=== PATIENT | male | born 1960 | race Caucasian/White ===

== ENCOUNTER 2023-07-21 13:24 | Outpatient (RCR) | payer MEDICARE, SELFPAY ==
[2023-07-13 08:14] LABS: Estimated Glomerular Filt Rate 26
--- NOTE | ~2023-07-21 | CT_ITS ---
CT of the Abdomen and Pelvis: Indication: Microscopic hematuria Technique: 2.5 mm axial scans were obtained through the abdomen and pelvis prior to and following in travenous administration of 130 cc of Omnipaque 350. Dose reduction technique was used on this scan b y utilizing automated exposure control and iterative reconstruction technique. The dose-length produc t (DLP) was 1847.90 mGy-cm. Findings: Scans through the lung bases are unremarkable. There is a 7.5 mm ovoid stone at the mid right ureter (series 3 image 29), with mild to moderate hydr oureteronephrosis to this level. There is a punctate nonobstructing left renal stone. The liver, spleen, pancreas, and adrenal glands are within normal limits. Cholecystectomy clips are p resent. No evidence of aortic aneurysm. No lymphadenopathy. No bowel obstruction or bowel wall thickening. There is no evidence to suggest acute appendicitis. Images through the pelvis were performed. Urinary bladder unremarkable. No pelvic mass seen. No ascit es. Bilateral L5 pars interarticularis defects are present. Impression: 7.5 mm mid right ureteral stone with mild to moderate right hydroureteronephrosis. Punctate nonobstructing left renal stone. Reviewed, dictated and finalized at location . Impression: 7.5 mm mid right ureteral stone with mild to moderate right hydroureteronephros is. Punctate nonobstructing left renal stone.
--- NOTE | ~2023-07-21 | XR_ITS ---
Supine and upright views of the abdomen Clinical history: Microscopic hematuria COMPARISON: 09/14/2016 Findings: Bowel gas pattern is nonspecific. No evidence for obstruction or free air. No abnormal mass lesion or calcification is seen. There is dextroscoliosis of the lumbar spine. Cholecystectomy clips are present. Impression: No significant abnormality is seen. Reviewed, dictated and finalized at location . Impression: No significant abnormality is seen.
[2023-07-21 07:24] LABS: Estimated Glomerular Filt Rate 41
== END 2023-07-21 13:30 | disposition home or self-care (01) ==
LOC: ANHIMG 13:24
PROVIDERS: PCP Family Medicine; Visit Provider Urology
DX: R31.29 Other microscopic hematuria (principal); N20.0 Calculus of kidney
CPT/HCPCS: 74018; 74178; Q9967

== ENCOUNTER 2023-07-22 07:51 | Outpatient (CLI) | payer MEDICARE, SELFPAY ==
--- NOTE | ~2023-07-22 | XR_ITS ---
XR abdomen/kub 1V 07/22/2023 08:10 INDICATION: Microscopic hematuria TECHNIQUE: KUB COMPARISON: Comparison to multiple prior studies sequentially, with oldest reviewed study dated 05/12. FINDINGS: Bowel gas pattern is normal. There is no evidence of free air, mass, organomegaly, ascites or obstruction. No abnormal calculi are seen. The bones appear intact. There are cholecystectomy c lips. IMPRESSION: 1: No acute abdominal abnormality identified. Reviewed, dictated and finalized at location B.
== END 2023-07-22 07:52 | disposition home or self-care (01) ==
PROVIDERS: PCP Family Medicine; Visit Provider Urology
DX: R31.29 Other microscopic hematuria (principal)
CPT/HCPCS: 74018

== ENCOUNTER 2023-07-23 08:06 | Outpatient (CLI) | payer MEDICARE, SELFPAY ==
--- NOTE | 2023-07-23 08:08 | ECG_ITS ---
SEE SCANNED COPY FOR CONFIRMED REPORT MTDD
== END 2023-07-23 08:07 | disposition home or self-care (01) ==
PROVIDERS: PCP Family Medicine; Visit Provider Urology
DX: N20.0 Calculus of kidney (principal); F17.210 Nicotine dependence, cigarettes, uncomplicated; Z01.818 Encounter for other preprocedural examination
CPT/HCPCS: 87086; 93005

== ENCOUNTER 2023-07-26 00:38 | Day surgery (SDC) | payer MEDICARE, SELFPAY ==
[2023-07-22 15:08] VITALS: BMI 27.8
--- NOTE | 2023-07-22 15:19 | PC.NURSE ---
PRE-OP INSTRUCTIONS, PLEASE READ CAREFULLY Report to the Outpatient Waiting Room, entrance under the green pavilion located off [facility], at time _0815_ on date _07/26/23_. Planned Procedure Time: _1015_. Time changes happen often and if your time is changed the preop area will call you the afternoon before. - You and your visitor will be asked to self-screen and do not enter if you have any COVID symptoms. - A mask is optional within the hospital at this time. Patients may have clear liquids (water, carbonated beverages, clear teas, apple juice) until 3 hours prior to surgery (0715 AM) with a maximum of 20 ounces. - No food from midnight until time of surgery Take the following medications with a SIP of water the morning of surgery: _NASAL SPRAY IF NEEDED_ DO NOT STOP ANY OF YOUR OTHER PRESCRIPTION MEDICATIONS PRIOR TO SURGERY ?EXCEPT THE FOLLOWING Medications to discontinue _PT STATES ALREADY STOPPING ALEVE SEVERAL DAYS AGO_ Medications to discontinue per ANESTHESIA -_VITAMINS/SUPPLEMENTS OF TODAY Date to take last dose 07/22/23_ Please no make-up, nail sinhala, hairspray, perfume, deodorant, or body powder the day of surgery. No jewelry (including any body piercings) or valuables the day of surgery, leave them at home. Please take a shower or bath the night before, or the morning of, surgery with an antibacterial soap. Wear comfortable, loose fitting clothing. - Jewelry must be removed prior to entering the operating room. Rings and piercings that are not removed may be cut off. - The hospital will not accept responsibility for valuables. - Please leave all valuables, including medications, at home the day of surgery. If you are going home after surgery, a licensed warehouse associate driver must drive you home. - NO public transportation without another adult if you receive anesthesia. - We recommend that an adult stay with you for 24 hours following discharge. - We also recommend that you do not drive, make important decision, drink alcoholic beverages, or take any drugs that were not prescribed by your health care provider for at least 24 hours after your discharge time. Follow any additional instructions given to you from your surgeon. If you or anyone in your household have experienced Covid symptoms in the past week, please notify your surgeon or the nurse liaison at the phone number below for possible testing. Telephone instructions given to _PATIENT_and asked if any additional questions and then verbalized understanding. Patient advised to call surgeon office or pre surgery nurse liaison [phone] if any additional questions.
--- NOTE | ~2023-07-26 | XR_ITS ---
EXAMINATION: XR retrograde pyelo w/stent RT DATE: 07/26/2023 11:14 INDICATION: Right ureteral stone. TECHNIQUE: 5 intraoperative fluoroscopic views of the abdomen and pelvis were obtained. I was not pre sent. Fluoroscopy exposure time was 21 seconds. COMPARISON: CT abdomen and pelvis 07/21/2023 FINDINGS: The right-sided retrograde pyelogram demonstrates mild hydronephrosis. The final images dem onstrate a right internal ureteral stent in expected position. Surgical clips in the right upper quad rant are likely from cholecystectomy. IMPRESSION: 1. Mild right hydronephrosis. 2. Right internal ureteral stent in expected position. Reviewed, dictated and finalized at location A.
[2023-07-26 08:51] VITALS: BP 132/85; PULSE 69; RESP 14; TEMP 36.5; O2SAT 98
[2023-07-26] MEDS: LACTATED RINGERS 1,000 ML 30 ML IV CONT (08:54)
--- NOTE | 2023-07-26 10:03 | WPDHPUPDATE1 ---
History and Physical Update Update Date/Time: 07/26/23 10:03 History and Physical has been reviewed, including an updated exam of the patient. There are NO changes in the patient's condition. Risks, benefits, and alternatives have been discussed and questions answered. Patient agrees to proceed with procedure. Proceed with cystoscopy, right retrograde pyelogram, right ureteroscopy with laser, stone extraction, stent placement
--- NOTE | 2023-07-26 10:07 | P.PNAN_ITS ---
Anes - Initial Pre Proc Eval Procedure: Operation Date: 07/26/23 10:15 Proposed Procedures p Cystoscopy, Right Ureteroscopy with Laser Lithotripsy, Possible Right Retrograde Pyelogram, Possible Right Stone Extraction, Possible Right Stent Placement - Jay Rico MD Date/Time: 07/26/23 10:07 Surgeon: Jay Rico MD Pre Op Diagnosis: right ureteral kidney stone Patient Data Age: 63 Gender: M Height: 1.98 m Weight: 103.1 kg Last Vital Signs Temp 97.7 F 07/26/23 08:51 Pulse 69 07/26/23 08:51 Resp 14 07/26/23 08:51 BP 132/85 07/26/23 08:51 Pulse Ox 98 07/26/23 08:51 Allergies Allergy/AdvReac Type Severity Reaction Status Date / Time No Known Allergies Allergy Mild Verified 07/26/23 08:54 Home Medications Medication Instructions Recorded Confirmed Type cyanocobalamin (vitamin B-12) 1,000 mcg PO DAILY 07/22/23 07/22/23 History 1,000 mcg tablet famotidine 20 mg tablet (Pepcid) 20 mg PO DAILY 07/22/23 07/22/23 History fluticasone propionate 50 2 spray intranasal DAILY 07/22/23 07/22/23 History mcg/actuation nasal spray,suspension naproxen sodium 220 mg capsule 220 mg PO BID PRN Pain 07/22/23 07/22/23 History (Aleve) terbinafine HCl 250 mg tablet 250 mg DAILY 07/22/23 07/22/23 History Patient hx anesthesia problems: none Family hx anesthesia problems: none Results Review: All pre-operative results and documents have been reviewed as part of the pre- operative evaluation. [facility] Social History Social History Smoking packs per day: 1 Smoking cigarettes per day: 20.0 Years smoked: 20 Smoking pack-years: 20.00 Smoking status: Former smoker Tobacco type: cigarettes Second hand tobacco smoke exposure: No Smoking end date: 03/21/08 Alcohol intake: current Alcohol use details: VERY RARELY - MAYBE COUPLE DRINKS AT [place] Substance use: never Substance use type: does not use Living arrangements: with family Spiritual care concerns: No Anes - Eval Final PreProcedure Day of Procedure 07/26/23 10:07 Patient weight: normal Heart: regular rate and rhythm Lungs: clear to auscultation Airway: Mallampati scale class II Neurological: alert and oriented Last oral intake: >/= 8 hours ASA classification: II Emergent: no Anesthetic plan: proceed Anesthesia type and monitoring: general LMA and standard monitoring Results Review: All pre-operative results and documents have been reviewed as part of the pre- operative evaluation. Informed Consent: The patient's anesthetic plan and its attendant risks and benefits were discussed with the patient/family/POA. Questions were solicited and answers provided to the satisfaction of the patient/family/POA.
[2023-07-26] MEDS: ceFAZolin 2 GM/D5W 50 ML 2 GM/50 ML BAG IVPB (10:21)
[2023-07-26] MEDS: LIDOCAINE HCL 2% GEL UROJET 10 ML PKG MUCOUS MEM (10:55)
--- NOTE | 2023-07-26 11:11 | W.PM.PROC2 ---
Procedure Note - Detailed Date of Procedure 07/26/23 Pre-op Diagnosis right ureteral kidney stone Post-op Diagnosis Same Procedure Performed Cystoscopy, right retrograde pyelogram, right ureteroscopy with holmium laser, stone extraction, right ureteral stent placement 4.8 Irish contour Surgeon Jay Rico MD Anesthesia General Description of Procedure Patient was taken to the operative suite correctly identified. Once anesthesia was obtained he was placed in the dorsal lithotomy position and prepped and draped usual sterile fashion. Twenty-two Irish scope was inserted the bladder there are no tumors noted. The right ureteral orifice was cannulated with a guidewire. Ureteral access sheath was placed. Mini flexible ureteral scope was inserted the stone was visualized. It was too large to retrieve 1 piece. Using a 200 micron fiber the stone was lasered in multiple small pieces. The large pieces were retrieved sent for analysis. Reinspection revealed no residual stones. Pyelogram was then performed to confirm placement of the stent. 4.8 Irish contour stent was then placed with the proximal end coiled in the renal pelvis and the distal in the bladder. 2% viscous lidocaine was then inserted urethra patient is taken recovery stable condition. He will follow-up in a week's time for stent removal. This completes dictation. Please send a copy of op note to my office. Estimated Blood Loss 0 Drains Yes Packing No Pathology Yes Complications No immediate complications Condition Stable Disposition PACU
[2023-07-26 11:16] VITALS: BP 124/75; PULSE 63; RESP 18; TEMP 36.4; O2SAT 100
[2023-07-26 11:30] VITALS: BP 133/89; PULSE 67; RESP 14; O2SAT 100
[2023-07-26 11:46] VITALS: BP 132/85; PULSE 72; RESP 14; O2SAT 100
[2023-07-26 11:50] VITALS: BP 131/77; PULSE 58; RESP 16
[2023-07-26 12:20] VITALS: BP 142/87; PULSE 67; RESP 16
== END 2023-07-26 12:43 | disposition home or self-care (01) ==
PROVIDERS: PCP Family Medicine; Visit Provider Urology
PROC: (CPT 52352; principal; 2023-07-26 10:15)
DX: N20.1 Calculus of ureter (principal); Z87.891 Personal history of nicotine dependence
CPT/HCPCS: 52356; 74018; 74420; 82365; 87086; 88300; 93005; C1758; C1769; C2617; J0690; J1100; J2405; J2704; J3010; J7120; Q9966

== ENCOUNTER 2023-09-08 11:05 | Outpatient (CLI) | payer MEDICARE, SELFPAY ==
--- NOTE | ~2023-09-08 | XR_ITS ---
XR abdomen/kub 1V Ordering provider: Alison Gilbert PA-C History: . RIGHT URETERAL STONE, 1 MONTH FOLLOW-UP . Comparison: July 22, 2023 FINDINGS: BOWEL: Nonobstructive bowel gas pattern. ORGANOMEGALY: None. SIGNIFICANT PATHOLOGIC CALCIFICATIONS: None. Calcifications in the right side of the pelvis are unc hanged. Lumbarization of S1. OTHER: No free air is seen under the diaphragm. Dextroscoliosis with degenerative the spine. IMPRESSION: NO ACUTE ABDOMINAL FINDINGS. Reviewed, dictated and finalized at location A.
== END 2023-09-08 11:06 | disposition home or self-care (01) ==
PROVIDERS: PCP Family Medicine; Visit Provider Physician Assistant
DX: N20.1 Calculus of ureter (principal)
CPT/HCPCS: 74018